=== PATIENT | female | born 2000 | race Caucasian/White ===

== ENCOUNTER 2024-01-27 09:20 | Outpatient (CLI) | payer OTHER, MEDICAID, SELFPAY ==
--- NOTE | ~2024-01-27 | US_ITS ---
EXAM: ABDOMEN ULTRASOUND HISTORY: RUQ Abdominal Pain COMPARISON: None FINDINGS: LIVER: The liver is unremarkable in echogenicity and size. The main portal vein is patent demonstrating hepatopedal flow. GALLBLADDER: Multiple stones are identified within the gallbladder, which is otherwise unremarkable. The stones are bulky and mobile. No gallbladder wall thickening or pericholecystic fluid. BILE DUCTS: Common bile duct measures 2.5mm. PANCREAS: Limited evaluation of the pancreas secondary to overlying bowel gas IMPRESSION: Cholelithiasis, without ultrasound evidence of cholecystitis.. Reviewed, dictated and finalized at location A.
== END 2024-01-27 09:21 | disposition home or self-care (01) ==
LOC: CHSIMG 09:24
PROVIDERS: PCP Nurse Practitioner; Visit Provider Nurse Practitioner
DX: R10.11 Right upper quadrant pain (principal); K80.20 Calculus of gallbladder without cholecystitis without obstruction
CPT/HCPCS: 76705